=== PATIENT | male | born 1935 | race Caucasian/White ===

== ENCOUNTER 2016-08-18 17:38 | Emergency (ER) | payer OTHER, MEDICARE ==
[~2016-08-18] VITALS: Ht 172.7 cm; Wt 82.0 kg
[2016-08-18 17:37] VITALS: TEMP 36.4; Ht 172.7 cm; Wt 82.0 kg
[~2016-08-18 17:38] MED LIST: ACET-1311 PO; ASPI81TA28 PO; ATEN-175 PO; CIPR-255 PO; CLOP1TAB15 PO; DABI150C PO; EZET10TA41 PO; ISOS30TA3 PO; LISI-461 PO; LORA-741 PO; MULT-878 PO; PRLSR20 PO; QUET1TAB32 PO
--- NOTE | 2016-08-18 18:58 | DIAGNOSTIC IMAGING REPORT ---
CT SCAN OF THE CERVICAL SPINE CLINICAL HISTORY: Fall. COMPARISON STUDY: No priors. TECHNIQUE: CT scan of the cervical spine is performed from the skull base to the upper thoracic spine. Images are reviewed in the axial, sagittal, and coronal planes. IV contrast was not administered for this examination. FINDINGS: Skeletal structures: The skeletal structures are osteopenic. There is no evidence of fracture or subluxation involving the cervical spine. Vertebral body height is maintained. There is 4 mm anterolisthesis at C5-C6. Alignment is otherwise preserved. The odontoid process and lateral masses are intact. The atlantoaxial articulation is preserved noting productive degenerative change with bony sclerosis and narrowing of the interval. There is straightening of the cervical lordosis with mild reversal centered at C5-C6. The spinous processes appear intact. There is moderate multilevel cervical spondylosis, with uncovertebral and facet arthropathy contributing to neural foraminal narrowing at most levels. Intervertebral discs: There is moderate degenerative disc space narrowing at C6-C7. Mild narrowing is seen at C5-C6. The remaining disc spaces appear maintained. Central canal: A posterior disc osteophyte complex at C6-C7 may contribute to mild acquired compromise of the central canal. Soft tissues: The prevertebral and paraspinous soft tissues are within normal limits. There is advanced atherosclerotic calcification of the carotid bulbs. Calvarium: The visualized calvarium at the skull base appears intact. Brain parenchyma: Partially visualized brain parenchyma the skull base is within normal limits noting age-related involutional change. Sinuses and mastoids: The visualized paranasal sinuses are clear. The mastoid air cells are well pneumatized. Lung apices: Emphysematous change is present at the lung apices and there is apical scarring. Imaged apical lung parenchyma is otherwise clear as visualized. IMPRESSION: 1. There is no evidence of fracture or subluxation involving the cervical spine. 2. Osteopenia and spondylotic change as above. 3. Emphysema. Electronically signed by: Hung Johnson M.D. 08/18/2016 6:56 PM
--- NOTE | 2016-08-18 19:00 | DIAGNOSTIC IMAGING REPORT ---
CT SCAN OF THE BRAIN WITHOUT IV CONTRAST CLINICAL HISTORY: Fall with head injury. COMPARISON STUDY: CT of the brain dated 12/15/2015. TECHNIQUE: Unenhanced axial CT scan of the brain is performed from the vertex to the skull base. CT DOSE: 1839.85 mGy.cm FINDINGS: Brain parenchyma: There are age-related involutional changes noting moderate confluent subcortical and periventricular microangiopathic change. There is no hemorrhage, mass effect, or evidence of acute territorial ischemia by CT criteria. Moses-white matter is preserved. No extra-axial fluid collection is seen. Ventricles, sulci, cisterns: Prominent secondary to involutional change. Intracranial vasculature: There is atherosclerotic calcification of the cavernous carotid and vertebral arteries. Calvarium: The skeletal structures are osteopenic. There is no depressed calvarial fracture. Sinuses and mastoids: The visualized paranasal sinuses are clear. The mastoid air cells are well pneumatized. Orbits: The bony orbits are grossly intact. IMPRESSION: Senescent changes as above with no hemorrhage, mass effect, or evidence of acute territorial ischemia by CT criteria. Electronically signed by: Hung Johnson M.D. 08/18/2016 6:59 PM
--- NOTE | 2016-08-18 19:21 | EMERGENCY ROOM VISIT NOTE ---
History Report prepared by Katrin: Gadiel Martins Under the Supervision of: Dr. Luc Rueda M.D. First contact with patient: 17:59 Chief Complaint: FALL Stated Complaint: FALL, LACERATION TO HEAD, HYPERTENSION History of Present Illness The patient is a 80 year old male who presents to the Emergency Room by EMS with complaints of constant head pain s/p fall occurring shortly prior to arrival. He denies any abdominal pain, or neck pain. The patient's fall was unwitnessed. He was reported to have fallen out of his bed. HPI limited secondary to dementia. Patient denies any symptoms. No medications prior to arrival. Source of History: patient History Limited By: dementia Onset: shortly prior to arrival Position: head Timing: constant Associated Symptoms: No abdominal pain, No neck pain Review of Systems ROS limited secondary to dementia. Past Medical & Surgical Medical Problems: (1) Alzheimer's dementia (2) Atrial fibrillation (3) CAD (coronary artery disease) (4) Dyslipidemia (5) HTN (hypertension) (6) Hypertensive urgency (7) Kidney stone Surgical Problems: (1) Stented coronary artery Family History No pertinent family history stated. Social History Smoking Status: Never Smoker Drug Use: none Marital Status: Occupation Status: retired Current/Historical Medications Scheduled Aspirin (Aspirin Ec), 81 MG PO DAILY Atenolol (Tenormin), 100 MG PO DAILY Dabigatran Etexilate Mesylate (Pradaxa), 150 MG PO BID Ezetimibe/Simvastatin (Vytorin 10MG/40MG), 1 TAB PO DAILY Isosorbide Mononitrate Ext Rel (Imdur Ext Rel), 30 MG PO QAM Lisinopril (Zestril), 10 MG PO DAILY Lorazepam (Ativan), 0.5 MG PO DAILY Multivitamins/Minerals (Cerovite Advanced Formula), 1 TAB PO DAILY Omeprazole (Prilosec), 20 MG PO DAILY Quetiapine Fumarate (Seroquel), 50 MG PO BID Venlafaxine Hcl (Effexor), 75 MG PO DAILY Venlafaxine Hcl (Venlafaxine Extended Rel), 37.5 MG PO DAILY Allergies Coded Allergies: No Known Allergies (Unverified , 12/12/15) Physical Exam Vital Signs Date Time Temp Pulse Resp B/P Pulse Ox O2 Delivery O2 Flow Rate FiO2 08/18/16 20:43 77 18 199/95 94 Room Air 08/18/16 19:20 20 197/123 08/18/16 18:17 62 08/18/16 17:37 36.4 66 17 234/116 Room Air Physical Exam GENERAL: Patient is elderly appearing and in no acute distress. Patient is demented. HEENT: Abrasion to the top of the head, normocephalic atraumatic, mucous membranes moist, no nasal congestion, no scleral icterus. NECK: No stridor, no adenopathy, no meningismus, trachea is midline. LUNGS: No dyspnea. Clear to auscultation and equal bilaterally. No wheeze, no rhonchi. HEART: Irregular heart rate. Systolic murmur noted. ABDOMEN: Soft, nontender, bowel sounds positive, no masses appreciated, no peritonitis. BACK: No midline tenderness, no CVA tenderness EXTREMITIES: Normal motion all extremities, no cyanosis, no edema. NEUROLOGIC: Oriented to person only, no acute motor or sensory deficits, no focal weakness, cranial nerves grossly intact. SKIN: No rash, no jaundice, no diaphoresis. Medical Decision & Procedures ER Provider Diagnostic Interpretation: CT results and stated below per my review and radiologist interpretation: CT SCAN OF THE BRAIN WITHOUT IV CONTRAST FINDINGS: Brain parenchyma: There are age-related involutional changes noting moderate confluent subcortical and periventricular microangiopathic change. There is no hemorrhage, mass effect, or evidence of acute territorial ischemia by CT criteria. Moses-white matter is preserved. No extra-axial fluid collection is seen. Ventricles, sulci, cisterns: Prominent secondary to involutional change. Intracranial vasculature: There is atherosclerotic calcification of the cavernous carotid and vertebral arteries. Calvarium: The skeletal structures are osteopenic. There is no depressed calvarial fracture. Sinuses and mastoids: The visualized paranasal sinuses are clear. The mastoid air cells are well pneumatized. Orbits: The bony orbits are grossly intact. IMPRESSION: Senescent changes as above with no hemorrhage, mass effect, or evidence of acute territorial ischemia by CT criteria. Electronically signed by: Hung Johnson M.D. CT SCAN OF THE CERVICAL SPINE FINDINGS: Skeletal structures: The skeletal structures are osteopenic. There is no evidence of fracture or subluxation involving the cervical spine. Vertebral body height is maintained. There is 4 mm anterolisthesis at C5-C6. Alignment is otherwise preserved. The odontoid process and lateral masses are intact. The atlantoaxial articulation is preserved noting productive degenerative change with bony sclerosis and narrowing of the interval. There is straightening of the cervical lordosis with mild reversal centered at C5-C6. The spinous processes appear intact. There is moderate multilevel cervical spondylosis, with uncovertebral and facet arthropathy contributing to neural foraminal narrowing at most levels. Intervertebral discs: There is moderate degenerative disc space narrowing at C6-C7. Mild narrowing is seen at C5-C6. The remaining disc spaces appear maintained. Central canal: A posterior disc osteophyte complex at C6-C7 may contribute to mild acquired compromise of the central canal. Soft tissues: The prevertebral and paraspinous soft tissues are within normal limits. There is advanced atherosclerotic calcification of the carotid bulbs. Calvarium: The visualized calvarium at the skull base appears intact. Brain parenchyma: Partially visualized brain parenchyma the skull base is within normal limits noting age-related involutional change. Sinuses and mastoids: The visualized paranasal sinuses are clear. The mastoid air cells are well pneumatized. Lung apices: Emphysematous change is present at the lung apices and there is apical scarring. Imaged apical lung parenchyma is otherwise clear as visualized. IMPRESSION: 1. There is no evidence of fracture or subluxation involving the cervical spine. 2. Osteopenia and spondylotic change as above. 3. Emphysema. Electronically signed by: Hung Johnson M.D. ECG Indication: other (fall) Rate (beats per minute): 62 Rhythm: atrial fibrillation Findings: PVC, no acute ischemic change ED Course 1800: The patient was evaluated in room C7. A complete history and physical exam was performed. 1914: Reevaluated the patient. His blood pressure has improved. He would like to go home. Discussed results and discharge instructions: the patient verbalized understanding and agreement. He is ready for discharge. Medical Decision Differential: Skull fracture, intracranial hemorrhage, cervical fracture, concussion, amongst other pathologies entertained. 80 yr old male with severe dementia history arrives for evaluation of posterior head injury after fall. He is in no distress and is comfortable. I did place blood pressure cuff on patient which he immediately got quite worked up about. After distracting him for a while and repeating BP while talking to him BP is 170/80. Repeat after CT head is similar and similar to previous blood pressure measurements (note several BP measurements quite high in chart though these were confirmed to be done while patient shaking arms straight out). Does have history of hypertensive urgency though given BP is not severely elevated when he is calm I do not feel that it requires admission at this time. CT head/ cspine negative. No need for wound closure. Impression Primary Impression: Fall Additional Impressions: Head injury, closed, Scalp contusion, Hypertension Scribe Attestation The scribe's documentation has been prepared under my direction and personally reviewed by me in its entirety. I confirm that the note above accurately reflects all work, treatment, procedures, and medical decision making performed by me. Departure Information Dispostion Home / Self-Care Referrals [facility] (PCP) Patient Instructions A Signature Page, ED Head Injury Closed, My [facility]
[2016-08-18] MEDS ORDERED: EFF/375 PO (20:28)
[2016-08-18] MEDS ORDERED: EFF75 PO (20:30)
[2016-08-18] MEDS ORDERED: VENL37.593 PO (20:32)
[2016-08-18 20:43] VITALS: BP 199/95; PULSE 77; O2SAT 94
[2016-09-01] MEDS ORDERED: LSN10 PO (13:39)
[2016-09-01] MEDS ORDERED: VTMD PO (13:42)
== END 2016-08-18 21:00 | disposition home or self-care (01) ==
LOC: EDBD 17:38 → C.EDC 17:40
DX: S00.03XA Contusion of scalp, initial encounter (principal); W06.XXXA Fall from bed, initial encounter; I10 Essential (primary) hypertension; I48.91 Unspecified atrial fibrillation; G30.9 Alzheimer's disease, unspecified; F02.80 Dementia in other diseases classified elsewhere, unspecified severity, without behavioral disturbance, psychotic disturbance, mood disturbance, and anxiety; I25.10 Atherosclerotic heart disease of native coronary artery without angina pectoris; E78.5 Hyperlipidemia, unspecified; Z98.61 Coronary angioplasty status; Z79.01 Long term (current) use of anticoagulants; Z79.82 Long term (current) use of aspirin; Z79.899 Other long term (current) drug therapy

== ENCOUNTER 2016-08-22 13:06 | Emergency (ER) | payer OTHER, MEDICARE ==
[~2016-08-22] VITALS: Ht 170.2 cm; Wt 81.1 kg
[~2016-08-22 13:06] MED LIST changes: -ACET-1311 PO; -CIPR-255 PO; -CLOP1TAB15 PO; +EFF75 PO; +VENL37.593 PO
[2016-08-22 13:15] VITALS: Ht 170.2 cm; Wt 81.1 kg
[2016-08-22] MEDS ORDERED: SIMV40TA2 PO (13:48)
[2016-08-22] MEDS ORDERED: EZET10TA47 PO (13:48)
--- NOTE | 2016-08-22 14:29 | DIAGNOSTIC IMAGING REPORT ---
CT OF THE HEAD WITHOUT CONTRAST CLINICAL HISTORY: Fall. Head injury. COMPARISON STUDY: Head CT August 18, 2016. CT DOSE: 1228.53 mGy.cm TECHNIQUE: Helical axial images of the head were obtained without IV contrast. Automated exposure control was utilized for the study. FINDINGS: No acute intracranial hemorrhage, midline shift or mass effect is present. Ventricular system is stable. The basilar cisterns are patent. There are no extra-axial collections. Moses-white differentiation is maintained. Moderate white matter hypodensity is unchanged. There is no calvarial fracture. IMPRESSION: 1. No acute intracranial findings. 2. No calvarial fracture. Electronically signed by: Beto Keith M.D. 08/22/2016 2:27 PM Dictated Date/Time: 08/22/2016 2:21 PM
[2016-08-22 17:30] VITALS: BP 136/63; PULSE 79; O2SAT 98
--- NOTE | 2016-08-22 22:25 | EMERGENCY ROOM VISIT NOTE ---
History Report prepared by Katrin: Grace Barker Under the Supervision of: Dr. Petey Bone M.D. First contact with patient: 13:13 Chief Complaint: FALL Stated Complaint: FALL History of Present Illness The patient is a 80 year old male who presents to the Emergency Room with complaints of a sudden fall that occurred prior to arrival. Per nursing staff, the patient had a ground level fall today. They note that the patient is from [facility] and hit his head during the fall. Nursing staff notes that the patient was recently evaluated in the emergency department for a fall on . The patient denies any complaints today. Pt denies LOC, headache, visual changes, neck pain, chest pain, breathing difficulties, nausea, vomiting, abdominal pain, back pain, extremity pain, numbness, weakness, open wounds, active bleeding, or other complaints. The history is limited secondary to dementia. Source of History: patient, nursing staff History Limited By: dementia Onset: prior to arrival Position: other (global) Quality: other (fall) Timing: other (sudden) Review of Systems History is limited secondary to dementia. Past Medical & Surgical Medical Problems: (1) AAA (abdominal aortic aneurysm) (2) Alzheimer's dementia (3) Atrial fibrillation (4) CAD (coronary artery disease) (5) Dyslipidemia (6) HTN (hypertension) (7) Hypertensive urgency (8) Kidney stone (9) Myocardial infarction Surgical Problems: (1) Stented coronary artery Family History Unobtainable secondary to dementia Social History Smoking Status: Never Smoker Drug Use: none Marital Status: Occupation Status: retired Current/Historical Medications Scheduled Aspirin (Aspirin Ec), 81 MG PO DAILY Atenolol (Tenormin), 100 MG PO DAILY Dabigatran Etexilate Mesylate (Pradaxa), 150 MG PO BID Ezetimibe (Zetia), 10 MG PO DAILY Isosorbide Mononitrate Ext Rel (Imdur Ext Rel), 30 MG PO QAM Lisinopril (Zestril), 10 MG PO DAILY Lorazepam (Ativan), 0.5 MG PO DAILY Multivitamins/Minerals (Cerovite Advanced Formula), 1 TAB PO DAILY Omeprazole (Prilosec), 20 MG PO DAILY Quetiapine Fumarate (Seroquel), 50 MG PO BID Simvastatin (Zocor), 40 MG PO QAM Venlafaxine Hcl (Effexor), 75 MG PO DAILY Venlafaxine Hcl (Venlafaxine Extended Rel), 37.5 MG PO DAILY Allergies Coded Allergies: No Known Allergies (Unverified , 12/12/15) Physical Exam Vital Signs Date Time Temp Pulse Resp B/P Pulse Ox O2 Delivery O2 Flow Rate FiO2 08/22/16 17:30 79 20 136/63 98 08/22/16 13:15 79 20 136/63 98 Room Air Physical Exam GENERAL: Awake, alert, well appearing, No distress HEAD: Healing abrasion on occiput. Normocephalic. No cosme sign. No raccoon eyes. EYES: Normal conjunctiva. PERRL. EARS: External ears normal. Right TM normal. Left TM normal. NOSE: Atraumatic OROPHARYNX: Lips, tongue, and mucosa unremarkable. No erythema or exudate. NECK: Supple No tracheal deviation or JVD. No posterior midline tenderness. No step offs noted. RESPIRATORY: CTA bilaterally CARDIAC: Regular rate, normal rhythm. ABDOMEN: Inspection reveals no abnormalities. Soft, non distended. No tenderness to palpation. No hernias. BACK: No midline step offs or tenderness to palpation. Unremarkable. PELVIS: Stable to rock. SKIN: Healing skin tear on the right second digit, dorsal aspect. LYMPH: No adenopathy. MUSCULOSKELETAL: Upper and lower extremities are atraumatic. NEURO: GCS 15. Normal sensorium. No sensory or motor deficits noted. Medical Decision & Procedures ER Provider Diagnostic Interpretation: CT: Radiology results as stated below per my review and radiologist interpretation CT OF THE HEAD WITHOUT CONTRAST CLINICAL HISTORY: Fall. Head injury. COMPARISON STUDY: Head CT August 18, 2016. CT DOSE: 1228.53 mGy.cm TECHNIQUE: Helical axial images of the head were obtained without IV contrast. Automated exposure control was utilized for the study. FINDINGS: No acute intracranial hemorrhage, midline shift or mass effect is present. Ventricular system is stable. The basilar cisterns are patent. There are no extra-axial collections. Moses-white differentiation is maintained. Moderate white matter hypodensity is unchanged. There is no calvarial fracture. IMPRESSION: 1. No acute intracranial findings. 2. No calvarial fracture. Electronically signed by: Beto Keith M.D. 08/22/2016 2:27 PM Dictated Date/Time: 08/22/2016 2:21 PM ED Course 1317: The patient was evaluated in room A4B. A complete history and physical exam was performed. 1442: I reevaluated the patient and he is resting comfortably. I discussed the exam findings with the patient and patient's friend and I discussed the treatment plan. They verbalized understanding and agreement. The patient is ready to be transferred back to [facility]. Medical Decision Triage Nursing notes reviewed. The patient's presentation and history were concerning for a fall. Etiologies such as closed head injury, subdural,, concussion ICH, SAH, infection , as well as others were entertained. Clinically the patient was doing well. He had minimal signs of head injury. He was in good spirits. He does have advanced dementia. The power of attorney law clerk was contacted and was comfortable with CT imaging. There is no indication for any other imaging or blood work at this time. The patient underwent CT and this was negative for intracranial pathology. On reassessment the patient was doing well and was in good spirits. Conservative management was discussed and the patient was discharged back to [facility]. By the evaluation outlined above other emergent etiologies such as those listed in the differential, as well as others, were deemed relatively unlikely. The patient and power of attorney law clerk were informed about the findings as listed above. All questions were answered and they were pleased with the treatment. Return instructions were outlined and the patient was discharged in stable condition. The patient was referred to his PCP for follow-up for a recheck of the current condition. The chart was completed utilizing [employer] Speech voice recognition software. Grammatical errors, random word insertions, pronoun errors, and incomplete sentences are an occasional consequence of this system due to software limitations, ambient noise, and hardware issues. Any formal questions or concerns about the content, text, or information contained within the body of this dictation should be directly addressed to the physician for clarification. Impression Primary Impression: Closed head injury Additional Impression: Fall Scribe Attestation The scribe's documentation has been prepared under my direction and personally reviewed by me in its entirety. I confirm that the note above accurately reflects all work, treatment, procedures, and medical decision making performed by me. Departure Information Dispostion Home / Self-Care Referrals [facility] (PCP) Forms HOME CARE DOCUMENTATION FORM, IMPORTANT VISIT INFORMATION Patient Instructions A Signature Page, My [facility] Additional Instructions Diagnosis: 1. Closed head injury 2. Fall CT scan of the head did not reveal any evidence of intracranial injury. Tylenol: Take 1000 mg every 6 hours as needed for pain. Do not take more than 3000 mg in a 24 hour period. Continue current medications. Follow-up with your primary care physician in one to 2 days for a recheck of your current condition. Return to the ER for headache, passing out, difficulty breathing, fevers, numbness, tingling, worsening of your condition, or as needed.
[2016-09-01] MEDS ORDERED: LSN10 PO (13:39)
[2016-09-01] MEDS ORDERED: VTMD PO (13:42)
== END 2016-08-22 17:30 | disposition home or self-care (01) ==
LOC: EDBD 13:06 → C.EDA 13:06
DX: S09.90XA Unspecified injury of head, initial encounter (principal); W19.XXXA Unspecified fall, initial encounter; F02.80 Dementia in other diseases classified elsewhere, unspecified severity, without behavioral disturbance, psychotic disturbance, mood disturbance, and anxiety; I48.91 Unspecified atrial fibrillation; I25.10 Atherosclerotic heart disease of native coronary artery without angina pectoris; I10 Essential (primary) hypertension; E78.5 Hyperlipidemia, unspecified; I25.2 Old myocardial infarction; Z87.440 Personal history of urinary (tract) infections; Z79.82 Long term (current) use of aspirin; Z79.899 Other long term (current) drug therapy; Z98.61 Coronary angioplasty status

== ENCOUNTER 2016-08-26 13:39 | Emergency (ER) | payer OTHER, MEDICARE ==
[~2016-08-26] VITALS: Ht 177.8 cm; Wt 81.9 kg
[~2016-08-26 13:39] MED LIST changes: -EZET10TA41 PO; +EZET10TA47 PO; +SIMV40TA2 PO
[2016-08-26 13:47] VITALS: TEMP 36.7; Ht 177.8 cm; Wt 81.9 kg
--- NOTE | 2016-08-26 14:10 | EMERGENCY ROOM VISIT NOTE ---
History Report prepared by Katrin: Johny Sherwood Under the Supervision of: Dr. Luis Samson M.D. First contact with patient: 13:57 Chief Complaint: ILLNESS Stated Complaint: SYNCOPE History of Present Illness The patient is a 80 year old male who presents to the Emergency Room with complaints of a sudden fall that occurred prior to arrival today. He is a resident at [facility]. He came via EMS. Per the nursing staff, the patient is in the Alzheimer's Unit there and was coming out of lunch, and he started falling down. A chair was put under the patient so he did not fall down to the ground. The staff there thought that the patient may have gone unresponsive, but EMS does not think he did due to good vital signs, so loss of consciousness is denied. The patient denies any pain. He has a history of atrial fibrillation. History limited secondary to patient's Alzheimer's. Source of History: patient History Limited By: other (Alzheimer's) Onset: Prior to arrival today Position: other Associated Symptoms: No LOC Note: Associated symptoms: Patient denies any pain. Review of Systems ROS limited secondary to patient's Alzheimer's. Past Medical & Surgical Medical Problems: (1) AAA (abdominal aortic aneurysm) (2) Alzheimer's dementia (3) Atrial fibrillation (4) CAD (coronary artery disease) (5) Dyslipidemia (6) HTN (hypertension) (7) Hypertensive urgency (8) Kidney stone (9) Myocardial infarction Surgical Problems: (1) Stented coronary artery Family History Unobtainable secondary to dementia Social History Smoking Status: Unknown if Ever Smoked Drug Use: none Marital Status: Occupation Status: retired Current/Historical Medications Scheduled Aspirin (Aspirin Ec), 81 MG PO DAILY Atenolol (Tenormin), 100 MG PO DAILY Dabigatran Etexilate Mesylate (Pradaxa), 150 MG PO BID Ezetimibe (Zetia), 10 MG PO DAILY Isosorbide Mononitrate Ext Rel (Imdur Ext Rel), 30 MG PO QAM Lisinopril (Zestril), 10 MG PO DAILY Lorazepam (Ativan), 0.5 MG PO DAILY Multivitamins/Minerals (Cerovite Advanced Formula), 1 TAB PO DAILY Omeprazole (Prilosec), 20 MG PO DAILY Quetiapine Fumarate (Seroquel), 50 MG PO BID Simvastatin (Zocor), 40 MG PO QAM Venlafaxine Hcl (Effexor), 75 MG PO DAILY Venlafaxine Hcl (Venlafaxine Extended Rel), 75 MG PO DAILY Allergies Coded Allergies: No Known Allergies (Unverified , 08/26/16) Physical Exam Vital Signs Date Time Temp Pulse Resp B/P Pulse Ox O2 Delivery O2 Flow Rate FiO2 08/26/16 16:24 56 18 137/71 94 Room Air 08/26/16 13:55 58 08/26/16 13:47 36.7 59 18 140/75 96 Room Air Physical Exam CONSTITUTIONAL: No acute distress. HEENT: No icterus, moist mucous membranes NECK: No meningismus, trachea is midline. CARDIOVASCULAR: Irregular and slight murmur noted. RESPIRATORY: Unlabored breathing. Clear to auscultation. GASTROINTESTINAL: Non-tender GENITOURINARY: No flank tenderness MUSCULOSKELETAL: Full range of motion NEUROLOGIC: Nonverbal consistent with baseline. PSYCHIATRIC: Normal affect SKIN: Normal for ethnicity. Medical Decision & Procedures ER Provider Diagnostic Interpretation: X-ray results as stated below per my interpretation and radiologist interpretation. Other radiology results as stated below per my review and radiologist interpretation. CT SCAN OF THE BRAIN WITHOUT IV CONTRAST CLINICAL HISTORY: Syncope. Change in mental status. COMPARISON STUDY: CT of the brain dated 08/22/2016. TECHNIQUE: Unenhanced axial CT scan of the brain is performed from the vertex to the skull base. CT DOSE: 823.94 mGycm FINDINGS: Brain parenchyma: There are age-related involutional changes noting moderate subcortical and periventricular microangiopathic change. There is no hemorrhage, mass effect, or evidence of acute territorial ischemia by CT criteria. Moses-white matter is preserved. No extra-axial fluid collection is seen. Ventricles, sulci, cisterns: Prominent secondary to involutional change. Intracranial vasculature: There is atherosclerotic calcification of the cavernous carotid and vertebral arteries. Calvarium: The skeletal structures are osteopenic. There is no depressed calvarial fracture. Sinuses and mastoids: The visualized paranasal sinuses are clear. The mastoid air cells are well pneumatized. Orbits: The bony orbits are grossly intact. IMPRESSION: Senescent changes as above with no hemorrhage, mass effect, or evidence of acute territorial ischemia by CT criteria. Electronically signed by: Hung Johnson M.D. 08/26/2016 2:43 PM Dictated Date/Time: 08/26/2016 2:41 PM CHEST ONE VIEW PORTABLE CLINICAL HISTORY: Near syncope. COMPARISON STUDY: No previous studies for comparison. FINDINGS: Lung volumes are diminished. There is moderate cardiomegaly. There is no evidence of pulmonary edema. There is mild hazy bilateral lower lung opacity. No lobar consolidation is present. IMPRESSION: 1. Diminished lung volumes with mild bibasilar opacities which favor atelectasis. An infectious process could appear similar but is considered less likely. 2. Moderate cardiomegaly without evidence of pulmonary edema. Electronically signed by: Beto Keith M.D. 08/26/2016 2:25 PM Dictated Date/Time: 08/26/2016 2:24 PM Laboratory Results 08/26/16 14:50 Red Blood Count 4.80, Mean Corpuscular Volume 91.7, Mean Corpuscular Hemoglobin 31.5, Mean Corpuscular Hemoglobin Concent 34.3, Mean Platelet Volume 10.5, Neutrophils (%) (Auto) 81.2, Lymphocytes (%) (Auto) 10.4, Monocytes (%) (Auto) 5.2, Eosinophils (%) (Auto) 2.8, Basophils (%) (Auto) 0.2, Neutrophils # (Auto) 7.83, Lymphocytes # (Auto) 1.00, Monocytes # (Auto) 0.50, Eosinophils # (Auto) 0.27, Basophils # (Auto) 0.02 08/26/16 14:50 Test 08/26/16 14:50 08/26/16 19:00 White Blood Count 9.64 K/uL (4.8-10.8) Red Blood Count 4.80 M/uL (4.7-6.1) Hemoglobin 15.1 g/dL (14.0-18.0) Hematocrit 44.0 % (42-52) Mean Corpuscular Volume 91.7 fL (80-100) Mean Corpuscular Hemoglobin 31.5 pg (25-34) Mean Corpuscular Hemoglobin Concent 34.3 g/dl (32-36) Platelet Count 138 K/uL (130-400) Mean Platelet Volume 10.5 fL (7.4-10.4) Neutrophils (%) (Auto) 81.2 % Lymphocytes (%) (Auto) 10.4 % Monocytes (%) (Auto) 5.2 % Eosinophils (%) (Auto) 2.8 % Basophils (%) (Auto) 0.2 % Neutrophils # (Auto) 7.83 K/uL (1.4-6.5) Lymphocytes # (Auto) 1.00 K/uL (1.2-3.4) Monocytes # (Auto) 0.50 K/uL (0.11-0.59) Eosinophils # (Auto) 0.27 K/uL (0-0.5) Basophils # (Auto) 0.02 K/uL (0-0.2) RDW Standard Deviation 45.9 fL (36.4-46.3) RDW Coefficient of Variation 13.8 % (11.5-14.5) Immature Granulocyte % (Auto) 0.2 % Immature Granulocyte # (Auto) 0.02 K/uL (0.00-0.02) Anion Gap 10.0 mmol/L (3-11) Est Creatinine Clear Calc Drug Dose 38.7 ml/min Estimated GFR () 46.8 Estimated GFR (Non- 40.4 BUN/Creatinine Ratio 14.6 (10-20) Calcium Level 8.8 mg/dl (8.5-10.1) Urine Color YELLOW Urine Appearance SL CLOUDY (CLEAR) Urine pH 5.0 (4.5-7.5) Urine Specific [place] >= 1.030 (1.000-1.030) Urine Protein 1+ (NEG) Urine Glucose (UA) NEG (NEG) Urine Ketones NEG (NEG) Urine Occult Blood 1+ (NEG) Urine Nitrite NEG (NEG) Urine Bilirubin NEG (NEG) Urine Urobilinogen NEG (NEG) Urine Leukocyte Esterase NEG (NEG) Labs reviewed by ED physician. ECG Indication: other (fall) Rate (beats per minute): 60 Rhythm: atrial fibrillation Findings: other (nonspecific ST findings, normal axis) ED Course 1359: Past medical records reviewed. The patient was evaluated in room A4B. A complete history and physical examination was performed. 1920: I reevaluated the patient and he is resting comfortably. The patient verbally expressed agreement and understanding of the treatment plan. The patient will be discharged. Medical Decision Differential diagnoses include: Intracranial pathology, UTI, anemia, electrolyte abnormality, orthostasis. 80-year-old presented [facility] from [facility] for evaluation of near-syncope per rub reports through nursing as well as transfer paperwork. It does not appear patient actually experienced a loss of consciousness per medics. Medics also noted when they arrived on the scene patient appeared generally well and had normal vital signs. He was monitored in the emergency department for over 5 hours without dysrhythmia on the monitor other than his baseline atrial fibrillation which remained in normal rate. Vital signs remained within normal limits. CT head, chest x-ray and labs were unremarkable for acute disease. Point care urine demonstrated small blood and ketones per nurse and [id number] troponin was negative. Case discussed with power of patent attorney, daughter. In agreement with plan for discharge at this time. Impression Primary Impression: Near syncope Scribe Attestation The scribe's documentation has been prepared under my direction and personally reviewed by me in its entirety. I confirm that the note above accurately reflects all work, treatment, procedures, and medical decision making performed by me. Departure Information Dispostion Home / Self-Care Referrals [facility] (PCP) Forms HOME CARE DOCUMENTATION FORM, IMPORTANT VISIT INFORMATION, WORK / SCHOOL INSTRUCTIONS Patient Instructions A Signature Page, ED Near Syncope Unkn, My [facility]
[2016-08-26] MEDS ORDERED: MULT-14 PO (14:26)
--- NOTE | 2016-08-26 14:27 | DIAGNOSTIC IMAGING REPORT ---
CHEST ONE VIEW PORTABLE CLINICAL HISTORY: Near syncope. COMPARISON STUDY: No previous studies for comparison. FINDINGS: Lung volumes are diminished. There is moderate cardiomegaly. There is no evidence of pulmonary edema. There is mild hazy bilateral lower lung opacity. No lobar consolidation is present. IMPRESSION: 1. Diminished lung volumes with mild bibasilar opacities which favor atelectasis. An infectious process could appear similar but is considered less likely. 2. Moderate cardiomegaly without evidence of pulmonary edema. Electronically signed by: Beto Keith M.D. 08/26/2016 2:25 PM Dictated Date/Time: 08/26/2016 2:24 PM
--- NOTE | 2016-08-26 14:45 | DIAGNOSTIC IMAGING REPORT ---
CT SCAN OF THE BRAIN WITHOUT IV CONTRAST CLINICAL HISTORY: Syncope. Change in mental status. COMPARISON STUDY: CT of the brain dated 08/22/2016. TECHNIQUE: Unenhanced axial CT scan of the brain is performed from the vertex to the skull base. CT DOSE: 823.94 mGycm FINDINGS: Brain parenchyma: There are age-related involutional changes noting moderate subcortical and periventricular microangiopathic change. There is no hemorrhage, mass effect, or evidence of acute territorial ischemia by CT criteria. Moses-white matter is preserved. No extra-axial fluid collection is seen. Ventricles, sulci, cisterns: Prominent secondary to involutional change. Intracranial vasculature: There is atherosclerotic calcification of the cavernous carotid and vertebral arteries. Calvarium: The skeletal structures are osteopenic. There is no depressed calvarial fracture. Sinuses and mastoids: The visualized paranasal sinuses are clear. The mastoid air cells are well pneumatized. Orbits: The bony orbits are grossly intact. IMPRESSION: Senescent changes as above with no hemorrhage, mass effect, or evidence of acute territorial ischemia by CT criteria. Electronically signed by: Hung Johnson M.D. 08/26/2016 2:43 PM Dictated Date/Time: 08/26/2016 2:41 PM
[2016-08-26 15:03] LABS: BASO % 0.2 %; BASO ABS # 0.02 K/uL (0-0.2); COMPLETE YES; EOS % 2.8 %; IG% 0.2 %; LYMPH % 10.4 %; MEAN CELL VOLUME 91.7 fL (80-100); MEAN CORPUSCULAR HEMOGLOBIN 31.5 pg (25-34); MEAN CORPUSCULAR HGB CONC 34.3 g/dl (32-36); MEAN PLATELET VOLUME 10.5 fL (7.4-10.4); MONO % 5.2 %; NEUT % 81.2 %; PLATELET COUNT 138 K/uL (130-400); WHITE BLOOD COUNT 9.64 K/uL (4.8-10.8)
[2016-08-26 15:26] LABS: BUN/CREATININE RATIO 14.6 (10-20); CALCIUM 8.8 mg/dl (8.5-10.1); CREATININE 1.6 mg/dl (0.60-1.40); POTASSIUM 4.2 mmol/L (3.5-5.1)
[2016-08-26 19:20] LABS: MANUAL MICROSCOPIC REQUIRED? YES; URINE APPEARANCE SL CLOUDY (CLEAR); URINE BILIRUBIN NEG (NEG); URINE COLOR YELLOW; URINE NITRITE NEG (NEG); URINE SPECIFIC GRAVITY >= 1.030 (1.000-1.030); UROBILINOGEN NEG (NEG)
[2016-08-26 19:21] LABS: REVIEW REQ? NO
[2016-08-26 19:27] LABS: URINE BACTERIA 1+ (NEG)
[2016-08-26 19:30] LABS: ZZURINE CULT IF INDIC CATH YES
[2016-08-26 20:33] VITALS: BP 166/90; PULSE 63; O2SAT 95
[2016-09-01] MEDS ORDERED: LSN10 PO (13:39)
[2016-09-01] MEDS ORDERED: VTMD PO (13:42)
== END 2016-08-26 20:30 | disposition home or self-care (01) ==
LOC: EDBD 13:39 → C.EDA 13:40
DX: R55 Syncope and collapse (principal); G30.9 Alzheimer's disease, unspecified; I48.91 Unspecified atrial fibrillation; I25.10 Atherosclerotic heart disease of native coronary artery without angina pectoris; I10 Essential (primary) hypertension; E78.5 Hyperlipidemia, unspecified; Z87.442 Personal history of urinary calculi; I71.9 Aortic aneurysm of unspecified site, without rupture; Z79.82 Long term (current) use of aspirin; Z79.899 Other long term (current) drug therapy

== ENCOUNTER → 2016-09-09 | Outpatient (CLI) | payer OTHER, MEDICARE ==
[~2016-09-09] MED LIST changes: -ATEN-175 PO; -DABI150C PO; -LISI-461 PO; +LSN10 PO; +NUTR-706 PO; +OSEL30CA PO; +SIMV20TA2 PO; +VTMD PO
[2016-09-09 10:08] LABS: BLOOD UREA NITROGEN 20 mg/dl (7-18); BUN/CREATININE RATIO 18.1 (10-20); CALCIUM 8.9 mg/dl (8.5-10.1); CARBON DIOXIDE 25 mmol/L (21-32); CHLORIDE 106 mmol/L (98-107); GLUCOSE 76 mg/dl (70-99); POTASSIUM 4.3 mmol/L (3.5-5.1); SODIUM 141 mmol/L (136-145)
--- NOTE | 2016-09-12 08:48 | CODING QUERY NO DIAGNOSIS ---
TREATMENT RENDERED WITHOUT A DIAGNOSIS To promote full compliance with coding requirements relating to patient care, physician participation is requested in all cases of health screener uncertainty. Please assist us with providing a diagnosis/symptom for the test(s) below: A diagnosis/symptom was not documented on your Order. A valid diagnosis/symptom is required to bill all insurances. Please remember that we are unable to code a diagnosis of rule out, probable, possible, questionable, or suspected. Tests that require a diagnosis: DOS 09/09 * PRP DIAGNOSIS: Provider Signature: Date: Thank you Nicole Pritchard Health Information Management Once completed, please kindly fax back to [phone] For questions please call [phone]
== END | disposition home or self-care (01) ==
LOC: C.LABOUTLO 09:27
PROVIDERS: ATTEND Internal Medicine
DX: N28.9 Disorder of kidney and ureter, unspecified (principal)

== ENCOUNTER 2016-09-15 22:00 | Emergency (ER) | payer OTHER, MEDICARE ==
[~2016-09-15] VITALS: Ht 170.2 cm; Wt 77.0 kg
[~2016-09-15 22:00] MED LIST changes: -NUTR-706 PO; -OSEL30CA PO; -SIMV20TA2 PO
[2016-09-15 22:15] VITALS: Ht 170.2 cm; Wt 77.0 kg
[2016-09-15] MEDS ORDERED: OSEL30CA PO (23:17)
[2016-09-16 00:32] VITALS: BP 147/71; PULSE 87; TEMP 36.5; O2SAT 94
--- NOTE | 2016-09-16 02:53 | EMERGENCY ROOM VISIT NOTE ---
History Report prepared by Jamieibheena: Joaquin Yancey Under the Supervision of: Dr. Petey Bone M.D. First contact with patient: 22:30 Chief Complaint: FALL Stated Complaint: R FLANK PAIN History of Present Illness The patient is an 81 year old male who presents to the Emergency Room after a fall that occurred at his assisted living facility earlier today. Per EMS, the patient had an unwitnessed fall that occurred between 4 and 7 AM this morning. The nursing staff assumed the patient fell after seeing how his furniture was disorganized. This morning, the patient complained of right flank pain. The patient was eventually sent to the ER because it is policy. Upon arriving at the ED, the patient does not remember the fall and does not complain of any pain. Per assisted living, the patient is not ambulatory. Pt denies LOC, headache, visual changes, neck pain, chest pain, breathing difficulties, nausea , vomiting, abdominal pain, back pain, extremity pain, numbness, weakness, open wounds, active bleeding, or other complaints.The patient's HPI is limited due to dementia. Source of History: patient, EMS, nursing staff Onset: this morning Position: other (global) Note: Denies: any medical complaints at this time. Review of Systems The patient's ROS is limited due to dementia. Past Medical & Surgical Medical Problems: (1) AAA (abdominal aortic aneurysm) (2) Alzheimer's dementia (3) Atrial fibrillation (4) CAD (coronary artery disease) (5) Dyslipidemia (6) GI bleed (7) HTN (hypertension) (8) Hypertensive urgency (9) Kidney stone (10) Lightheadedness (11) Myocardial infarction (12) Syncope Surgical Problems: (1) Stented coronary artery Family History Unobtainable secondary to dementia Social History Smoking Status: Never Smoker Drug Use: none Marital Status: Occupation Status: retired Current/Historical Medications Scheduled Aspirin (Aspirin Ec), 81 MG PO DAILY Ergocalciferol (Vitamin D), 50,000 UNITS PO Q7D Ezetimibe (Zetia), 10 MG PO DAILY Isosorbide Mononitrate Ext Rel (Imdur Ext Rel), 30 MG PO QAM Lisinopril (Zestril), 10 MG PO QAM Lorazepam (Ativan), 0.5 MG PO DAILY Multivitamins/Minerals (Cerovite Advanced Formula), 1 TAB PO DAILY Omeprazole (Prilosec), 20 MG PO DAILY Oseltamivir Phosphate (Tamiflu), 1 CAP PO DAILY Quetiapine Fumarate (Seroquel), 50 MG PO BID Simvastatin (Zocor), 40 MG PO QAM Venlafaxine Hcl (Effexor), 75 MG PO DAILY Venlafaxine Hcl (Venlafaxine Extended Rel), 37.5 MG PO DAILY Allergies Coded Allergies: No Known Allergies (Unverified , 09/15/16) Physical Exam Vital Signs Date Time Temp Pulse Resp B/P Pulse Ox O2 Delivery O2 Flow Rate FiO2 09/16/16 00:32 36.5 87 18 147/71 94 09/15/16 22:15 36.5 89 17 151/86 98 Room Air 09/15/16 22:13 88 Physical Exam GENERAL: Awake, alert, well appearing, no acute distress. Demented sensorium. HEAD: Normocephalic, atraumatic. No cosme sign. No raccoon eyes. EYES: Normal conjunctiva. PERRL. EARS: External ears normal. Right TM normal. Left TM normal. NOSE: Atraumatic OROPHARYNX: Lips, tongue, and mucosa unremarkable. No erythema or exudate. NECK: Supple. No nuchal rigidity. FROM. No tracheal deviation or JVD. No posterior midline tenderness. No step offs noted. RESPIRATORY: CTA bilaterally CARDIAC: Regular rate, normal rhythm. ABDOMEN: Inspection reveals no abnormalities. Soft, non distended. No tenderness to palpation. No hernias. BACK: No midline step offs or tenderness to palpation. Unremarkable. PELVIS: Stable to rock. SKIN: Normal. LYMPH: No adenopathy. MUSCULOSKELETAL: Upper and lower extremities are atraumatic. Trace lower extremity edema. NEURO: GCS 15. Normal sensorium. No sensory or motor deficits noted. Medical Decision & Procedures ED Course 2259: The patient was evaluated in room B12. A complete history and physical exam was performed. 2317: I reevaluated the patient and he was resting comfortably. Discussed results and discharge instructions: The patient is ready for discharge and waiting for transport. Medical Decision Triage Nursing notes reviewed. The patient's presentation and history were concerning for Evaluation for possible injury from a possible fall. Etiologies such as soft tissue injury, fracture, dislocation, intracranial injury, as well as others were entertained. Patient was evaluated. Clinically he looked well. He had dementia however had no complaints of any pain. A physical examination was performed. No traumatic findings were found. The patient was doing well. I discussed conservative management. Imaging was felt to be unnecessary given the lack of physical findings and lack of complaints of any pain or injury. The chart was completed utilizing [employer] Speech voice recognition software. Grammatical errors, random word insertions, pronoun errors, and incomplete sentences are an occasional consequence of this system due to software limitations, ambient noise, and hardware issues. Any formal questions or concerns about the content, text, or information contained within the body of this dictation should be directly addressed to the physician for clarification. Impression Primary Impression: evaluation for fall Scribe Attestation The scribe's documentation has been prepared under my direction and personally reviewed by me in its entirety. I confirm that the note above accurately reflects all work, treatment, procedures, and medical decision making performed by me. Departure Information Dispostion Home / Self-Care Referrals [facility] (PCP) Forms HOME CARE DOCUMENTATION FORM, IMPORTANT VISIT INFORMATION Patient Instructions My [facility] Additional Instructions No significant trauma injuries were found. Tylenol: Take 1000 mg every 6 hours as needed for pain. Do not take more than 3000 mg in a 24 hour period. Continue current medications. Rest injury plenty of fluids. Return to the ER for headache, passing out, difficulty breathing, fevers, abdominal pain, chest pain, worsening of your condition, or as needed.
== END 2016-09-16 00:32 | disposition home or self-care (01) ==
LOC: EDBD 22:00 → C.EDB 22:01
DX: Z04.8 Encounter for examination and observation for other specified reasons (principal); G30.9 Alzheimer's disease, unspecified; F02.80 Dementia in other diseases classified elsewhere, unspecified severity, without behavioral disturbance, psychotic disturbance, mood disturbance, and anxiety; I10 Essential (primary) hypertension; I25.2 Old myocardial infarction; E78.5 Hyperlipidemia, unspecified; I25.10 Atherosclerotic heart disease of native coronary artery without angina pectoris; I71.9 Aortic aneurysm of unspecified site, without rupture; Z79.82 Long term (current) use of aspirin; Z79.899 Other long term (current) drug therapy

== ENCOUNTER → 2016-09-16 | Outpatient (CLI) | payer OTHER, MEDICARE ==
[~2016-09-16] MED LIST changes: +NUTR-706 PO; +OSEL30CA PO; +SIMV20TA2 PO
[2016-09-16 08:47] LABS: BLOOD UREA NITROGEN 28 mg/dl (7-18); BUN/CREATININE RATIO 21.7 (10-20); CARBON DIOXIDE 23 mmol/L (21-32); CHLORIDE 104 mmol/L (98-107); GLUCOSE 101 mg/dl (70-99); PHOSPHORUS 3.2 mg/dl (2.5-4.9); POTASSIUM 3.9 mmol/L (3.5-5.1); SODIUM 138 mmol/L (136-145)
--- NOTE | 2016-09-18 13:49 | CODING QUERY NO DIAGNOSIS ---
TREATMENT RENDERED WITHOUT A DIAGNOSIS 36 To promote full compliance with coding requirements relating to patient care, physician participation is requested in all cases of tobacco prizer uncertainty. Please assist us with providing a diagnosis/symptom for the test(s) below: A diagnosis/symptom was not documented on your Order. A valid diagnosis/symptom is required to bill all insurances. Please remember that we are unable to code a diagnosis of rule out, probable, possible, questionable, or suspected. DOS 09/16/16 Tests that require a diagnosis: * RENAL PROFILE DIAGNOSIS: Provider Signature: Date: Thank you Mary Beth Mcadams [employer] Information Management Once completed, please kindly fax back to [phone] For questions please call [phone]
== END | disposition home or self-care (01) ==
LOC: C.LABOUTLO 08:17
PROVIDERS: ATTEND Internal Medicine
DX: N18.9 Chronic kidney disease, unspecified (principal)

== ENCOUNTER 2016-11-23 13:15 | Emergency (ER) | payer OTHER, MEDICARE ==
[~2016-11-23] VITALS: Ht 172.7 cm; Wt 72.5 kg
[~2016-11-23 13:15] MED LIST changes: -NUTR-706 PO; -SIMV20TA2 PO
[2016-11-23 13:35] VITALS: Ht 172.7 cm; Wt 72.5 kg
[2016-11-23] MEDS ORDERED: SIMV20TA2 PO (13:41)
--- NOTE | 2016-11-23 14:57 | DIAGNOSTIC IMAGING REPORT ---
CHEST ONE VIEW PORTABLE CLINICAL HISTORY: Chest trauma PAIN COMPARISON STUDY: 08/29/2016 FINDINGS: The heart is enlarged. There is no focal pulmonary consolidation. There is no overt failure. There are no pleural effusions. There is a right upper lung zone opacity which will nonspecific likely relates to the right first costochondral junction. No pneumothorax is visualized.[ IMPRESSION: 1. Mild cardiomegaly 2. No evidence of pneumothorax 3. Right apical opacity, likely related to the right first costochondral junction Electronically signed by: Jesus Pérez M.D. 11/23/2016 2:55 PM Dictated Date/Time: 11/23/2016 2:52 PM
--- NOTE | 2016-11-23 14:58 | DIAGNOSTIC IMAGING REPORT ---
RIGHT HAND MIN 3 VIEWS ROUTINE CLINICAL HISTORY: Head pain status post trauma COMPARISON: None. DISCUSSION: The bones are osteopenic. There are mild degenerative changes present. No acute fractures are visualized. IMPRESSION: Osteopenia. No acute fractures or dislocations identified. Electronically signed by: Jesus Pérez M.D. 11/23/2016 2:56 PM Dictated Date/Time: 11/23/2016 2:55 PM
[2016-11-23 15:19] LABS: BASO % 0.3 %; BASO ABS # 0.02 K/uL (0-0.2); COMPLETE YES; EOS % 2.2 %; HEMATOCRIT 45.4 % (42-52); IG% 0.1 %; LYMPH % 18.6 %; LYMPH ABS # 1.28 K/uL (1.2-3.4); MEAN CELL VOLUME 89.2 fL (80-100); MEAN CORPUSCULAR HEMOGLOBIN 30.8 pg (25-34); MEAN CORPUSCULAR HGB CONC 34.6 g/dl (32-36); MEAN PLATELET VOLUME 10.7 fL (7.4-10.4); MONO % 5.4 %; NEUT % 73.4 %; PLATELET COUNT 147 K/uL (130-400); RED BLOOD COUNT 5.09 M/uL (4.7-6.1); WHITE BLOOD COUNT 6.88 K/uL (4.8-10.8)
[2016-11-23 15:29] LABS: INR 1.1 (0.9-1.1); PARTIAL THROMBOPLASTIN RATIO 1.1; PROTHROMBIN TIME (PATIENT) 11.3 SECONDS (9.0-12.0)
[2016-11-23 15:41] LABS: BLOOD UREA NITROGEN 15 mg/dl (7-18); BUN/CREATININE RATIO 12.2 (10-20); CALCIUM 8.8 mg/dl (8.5-10.1); CARBON DIOXIDE 28 mmol/L (21-32); CHLORIDE 105 mmol/L (98-107); GLUCOSE 89 mg/dl (70-99); POTASSIUM 4.1 mmol/L (3.5-5.1); SODIUM 140 mmol/L (136-145)
--- NOTE | 2016-11-23 15:51 | DIAGNOSTIC IMAGING REPORT ---
CT HEAD WITHOUT CONTRAST (CT) CLINICAL HISTORY: Head trauma. Acute change in mental status. COMPARISON STUDY: 08/26/2016 TECHNIQUE: Axial CT of the brain is performed from the vertex to the skull base. IV contrast was not administered for this examination. CT DOSE: 1235.79 mGy.cm FINDINGS: No intra or extra-axial mass lesions are visualized. There is no CT evidence of acute cortical infarction. There is no evidence of midline shift. There is no acute hemorrhage. No calvarial fractures are visualized. There are patchy white matter hypodensities likely on a small vessel basis. There is mild ventricular dilatation, likely secondary to volume loss. There is no evidence of acute sinusitis. There is a small left frontal scalp hematoma. IMPRESSION: Small left frontal scalp hematoma. No acute intracranial findings. Electronically signed by: Jesus Pérez M.D. 11/23/2016 3:49 PM Dictated Date/Time: 11/23/2016 3:48 PM
--- NOTE | 2016-11-23 15:54 | DIAGNOSTIC IMAGING REPORT ---
CT OF THE CERVICAL SPINE CLINICAL HISTORY: Neck pain status post trauma COMPARISON STUDY: August 18, 2016 CT DOSE: TECHNIQUE: CT scan of the cervical spine was performed from the skull base to the thoracic inlet. Images are reviewed in the axial, sagittal, and coronal planes. IV contrast was not administered for this examination. FINDINGS: The visualized portions of the lung apices reveal no evidence of pneumothorax. There is pulmonary emphysema. The prevertebral soft tissues are normal. No fractures or traumatic subluxations are visualized. There are multilevel degenerative changes. Mild anterior subluxation of C5 on C6 is felt to be degenerative. This remain similar to the preceding study. IMPRESSION: No evidence of acute fracture or traumatic subluxation. Electronically signed by: Jesus Pérez M.D. 11/23/2016 3:52 PM Dictated Date/Time: 11/23/2016 3:49 PM
[2016-11-23 16:39] VITALS: TEMP 36.6
[2016-11-23 18:35] VITALS: BP 159/95; PULSE 74; O2SAT 98
--- NOTE | 2016-11-23 19:05 | EMERGENCY ROOM VISIT NOTE ---
History Report prepared by Katrin: Dali Santos Under the Supervision of: Dr. Umang Chavarria M.D. First contact with patient: 14:22 Chief Complaint: FALL Stated Complaint: Fall from standing, Head abrasion History of Present Illness The patient is an 81 year old male who presents to the Emergency Room with complaints of a fall that occurred earlier today. Nursing staff reports he had an unwitnessed fall at his shelter and sustained an abrasion to the top of his head. The patient denies any headache, chest pain, shortness of breath, abdominal pain or pain or swelling in his arms or legs. He states he feels "pretty good" here in the ED. Additional history of unobtainable secondary to dementia. Source of History: patient, nursing staff History Limited By: dementia Onset: INSURANCE ACCOUNT MANAGER Position: other (global) Quality: other (fall) Timing: resolved Associated Symptoms: No SOB, No abdominal pain, No chest pain, No headache Review of Systems See HPI for pertinent positives & negatives. A total of 10 systems reviewed and were otherwise negative. Past Medical & Surgical Medical Problems: (1) AAA (abdominal aortic aneurysm) (2) Alzheimer's dementia (3) Atrial fibrillation (4) CAD (coronary artery disease) (5) Dyslipidemia (6) GI bleed (7) HTN (hypertension) (8) Hypertensive urgency (9) Kidney stone (10) Lightheadedness (11) Myocardial infarction (12) Syncope Surgical Problems: (1) Stented coronary artery Family History Unobtainable secondary to dementia Social History Smoking Status: Unknown if Ever Smoked Alcohol Use: none Drug Use: none Marital Status: Housing Status: lives with family Occupation Status: retired Current/Historical Medications Scheduled Aspirin (Aspirin Ec), 81 MG PO DAILY Ergocalciferol (Vitamin D), 50,000 UNITS PO Q7D Isosorbide Mononitrate Ext Rel (Imdur Ext Rel), 30 MG PO QAM Lisinopril (Zestril), 10 MG PO QAM Lorazepam (Ativan), 0.5 MG PO DAILY Multivitamins/Minerals (Cerovite Advanced Formula), 1 TAB PO DAILY Omeprazole (Prilosec), 20 MG PO DAILY Quetiapine Fumarate (Seroquel), 50 MG PO BID Simvastatin (Zocor), 20 MG PO DAILY Venlafaxine Hcl (Effexor), 75 MG PO DAILY Venlafaxine Hcl (Venlafaxine Extended Rel), 37.5 MG PO DAILY Allergies Coded Allergies: No Known Allergies (Unverified , 11/23/16) Physical Exam Vital Signs Date Time Temp Pulse Resp B/P Pulse Ox O2 Delivery O2 Flow Rate FiO2 11/23/16 18:35 74 20 159/95 98 Room Air 11/23/16 16:39 36.6 69 20 148/91 98 11/23/16 16:33 36.6 69 20 148/91 98 Room Air 11/23/16 13:35 36.6 69 20 154/95 98 Room Air Physical Exam Constitutional: Vital signs reviewed. Pleasant elderly male. GCS15 Eyes: Pupils are equal round reactive to light. Conjunctiva are noninjected. ENT: Pharynx is clear without erythema or exudate. Mucous membranes are moist. Neck supple without meningeal signs. No midline tenderness to the cervical spine. Soft tissue swelling and abrasion to the left forehead. Respiratory: Clear to auscultation bilaterally. Breath sounds are equal bilaterally. Cardiovascular: Irregularly irregular rhythm, regular rate. No rubs or gallops. GI: Soft, nondistended and nontender. Bowel sounds are present. No pulsatile masses. Musculoskeletal: No peripheral edema. No tenderness to the hips or upper extremities or lower extremities other than dorsum of right hand, where he has a small bruise and skin tear. Integumentary: No cyanosis. Neurological: The patient is awake and alert. Cranial nerves II-XII are intact. Motor is 5 out of 5 all extremities. Sensation is intact to light touch all extremities. Normal speech. Psychiatric: Normal affect. Medical Decision & Procedures ER Provider Diagnostic Interpretation: These X-Rays were reviewed and interpreted by myself and the radiologist. CHEST ONE VIEW PORTABLE CLINICAL HISTORY: Chest trauma PAIN COMPARISON STUDY: 08/29/2016 FINDINGS: The heart is enlarged. There is no focal pulmonary consolidation. There is no overt failure. There are no pleural effusions. There is a right upper lung zone opacity which will nonspecific likely relates to the right first costochondral junction. No pneumothorax is visualized.[ IMPRESSION: 1. Mild cardiomegaly 2. No evidence of pneumothorax 3. Right apical opacity, likely related to the right first costochondral junction Electronically signed by: Jesus Pérez M.D. 11/23/2016 2:55 PM RIGHT HAND MIN 3 VIEWS ROUTINE CLINICAL HISTORY: Head pain status post trauma COMPARISON: None. DISCUSSION: The bones are osteopenic. There are mild degenerative changes present. No acute fractures are visualized. IMPRESSION: Osteopenia. No acute fractures or dislocations identified. Electronically signed by: Jesus Pérez M.D. 11/23/2016 2:[address] scans were reviewed and interpreted by the radiologist and reviewed by myself. CT OF THE CERVICAL SPINE CLINICAL HISTORY: Neck pain status post trauma COMPARISON STUDY: August 18, 2016 CT DOSE: TECHNIQUE: CT scan of the cervical spine was performed from the skull base to the thoracic inlet. Images are reviewed in the axial, sagittal, and coronal planes. IV contrast was not administered for this examination. FINDINGS: The visualized portions of the lung apices reveal no evidence of pneumothorax. There is pulmonary emphysema. The prevertebral soft tissues are normal. No fractures or traumatic subluxations are visualized. There are multilevel degenerative changes. Mild anterior subluxation of C5 on C6 is felt to be degenerative. This remain similar to the preceding study. IMPRESSION: No evidence of acute fracture or traumatic subluxation. Electronically signed by: Jesus Pérez M.D. 11/23/2016 3:[address] HEAD WITHOUT CONTRAST (CT) CLINICAL HISTORY: Head trauma. Acute change in mental status. COMPARISON STUDY: 08/26/2016 TECHNIQUE: Axial CT of the brain is performed from the vertex to the skull base. IV contrast was not administered for this examination. CT DOSE: 1235.79 mGy.cm FINDINGS: No intra or extra-axial mass lesions are visualized. There is no CT evidence of acute cortical infarction. There is no evidence of midline shift. There is no acute hemorrhage. No calvarial fractures are visualized. There are patchy white matter hypodensities likely on a small vessel basis. There is mild ventricular dilatation, likely secondary to volume loss. There is no evidence of acute sinusitis. There is a small left frontal scalp hematoma. IMPRESSION: Small left frontal scalp hematoma. No acute intracranial findings. Electronically signed by: Jesus Pérez M.D. 11/23/2016 3:49 PM Laboratory Results 11/23/16 15:10 Red Blood Count 5.09, Mean Corpuscular Volume 89.2, Mean Corpuscular Hemoglobin 30.8, Mean Corpuscular Hemoglobin Concent 34.6, Mean Platelet Volume 10.7, Neutrophils (%) (Auto) 73.4, Lymphocytes (%) (Auto) 18.6, Monocytes (%) (Auto) 5.4, Eosinophils (%) (Auto) 2.2, Basophils (%) (Auto) 0.3, Neutrophils # (Auto) 5.05, Lymphocytes # (Auto) 1.28, Monocytes # (Auto) 0.37, Eosinophils # (Auto) 0.15, Basophils # (Auto) 0.02 11/23/16 15:10 Test 11/23/16 15:10 White Blood Count 6.88 K/uL (4.8-10.8) Red Blood Count 5.09 M/uL (4.7-6.1) Hemoglobin 15.7 g/dL (14.0-18.0) Hematocrit 45.4 % (42-52) Mean Corpuscular Volume 89.2 fL (80-100) Mean Corpuscular Hemoglobin 30.8 pg (25-34) Mean Corpuscular Hemoglobin Concent 34.6 g/dl (32-36) Platelet Count 147 K/uL (130-400) Mean Platelet Volume 10.7 fL (7.4-10.4) Neutrophils (%) (Auto) 73.4 % Lymphocytes (%) (Auto) 18.6 % Monocytes (%) (Auto) 5.4 % Eosinophils (%) (Auto) 2.2 % Basophils (%) (Auto) 0.3 % Neutrophils # (Auto) 5.05 K/uL (1.4-6.5) Lymphocytes # (Auto) 1.28 K/uL (1.2-3.4) Monocytes # (Auto) 0.37 K/uL (0.11-0.59) Eosinophils # (Auto) 0.15 K/uL (0-0.5) Basophils # (Auto) 0.02 K/uL (0-0.2) RDW Standard Deviation 43.6 fL (36.4-46.3) RDW Coefficient of Variation 13.3 % (11.5-14.5) Immature Granulocyte % (Auto) 0.1 % Immature Granulocyte # (Auto) 0.01 K/uL (0.00-0.02) Prothrombin Time 11.3 SECONDS (9.0-12.0) Prothromb Time International Ratio 1.1 (0.9-1.1) Activated Partial Thromboplast Time 29.6 SECONDS (21.0-31.0) Partial Thromboplastin Ratio 1.1 Anion Gap 7.0 mmol/L (3-11) Est Creatinine Clear Calc Drug Dose 47.5 ml/min Estimated GFR () 65.8 Estimated GFR (Non- 56.8 BUN/Creatinine Ratio 12.2 (10-20) Calcium Level 8.8 mg/dl (8.5-10.1) Troponin I < 0.015 ng/ml (0-0.045) Chemistry Specimen Hemolysis Laboratory results as reviewed by me. ECG Indication: other (fall) Rate (beats per minute): 97 Rhythm: atrial fibrillation Findings: other (No widening of QRS. No ST elevations. Limited interpretation due to artifact.) ED Course 1445: The patient was evaluated in room A10. A complete history and physical exam was performed. 1600: I reevaluated the patient. I talked to him about his test results. He has no complaints at this time. Medical Decision This is an 81-year-old male who presents with head injury after a unwitnessed fall. Differential diagnosis includes contusion, concussion, intracranial hemorrhage, skull fracture, cervical fracture, metabolic derangement. I did perform a limited focused review of portions of the patient's old chart on the electronic medical record. The patient was admitted in August 2016 for altered mental status. He has a history of GI bleed and atrial fibrillation and was previously on Pradaxa. He did have an unwitnessed fall on September 15 and he was discharged after evaluation. I did evaluate the patient as noted above. I did obtain history from the nurse as well as the patient. He does have a history of dementia and does not remember falling. He denies any pain or any complaints at this time. GCS is 15. IV access was established. The patient was placed on a continuous cardiac rn. I did order and personally review the patient's 12-lead EKG and chest x-ray as described above. I did order and review the patient's blood work as noted in the electronic medical record. His lab work is unremarkable. I did order a CT of the head and cervical spine. I did review the images myself as well as the radiology report as described above. There is no evidence of intracranial hemorrhage or cervical fracture. I did reassess the patient. He has no complaints. He was discharged back to the shelter. Impression Primary Impression: Acute head injury Additional Impressions: Fall Dementia Injury of right hand Scribe Attestation The scribe's documentation has been prepared under my direct and personally reviewed by me in its entirety. I confirm that the note above accurately reflects all work, treatment, procedures, and medical decision making performed by me. Departure Information Dispostion Home / Self-Care Referrals [facility] (PCP) Patient Instructions ED Head Injury Closed, My [facility] Additional Instructions You have been examined and treated today on an emergency basis only. This is not a substitute for, or an effort to provide, complete comprehensive medical care. It is impossible to recognize and treat all injuries or illnesses in a single emergency department visit. It is therefore important that you follow up closely with your physician. Call as soon as possible for an appointment. Return for worsening symptoms or if you develop fever, vomiting, headache, chest pain, shortness of breath or any other concerning symptoms. Problem Qualifiers Primary Impression: Acute head injury Encounter type: initial encounter Qualified Codes: S09.90XA - Unspecified injury of head, initial encounter Additional Impressions: Fall Encounter type: initial encounter Qualified Codes: W19.XXXA - Unspecified fall, initial encounter Dementia Dementia type: Alzheimer's disease Alzheimer's disease onset: unspecified onset Dementia behavioral disturbance: without behavioral disturbance Qualified Codes: G30.9 - Alzheimer's disease, unspecified; F02.80 - Dementia in other diseases classified elsewhere without behavioral disturbance Injury of right hand Encounter type: initial encounter Qualified Codes: S69.91XA - Unspecified injury of right wrist, hand and finger(s), initial encounter
== END 2016-11-23 19:15 | disposition home or self-care (01) ==
LOC: EDBD 13:15 → C.EDA 13:18
DX: S09.90XA Unspecified injury of head, initial encounter (principal); S69.91XA Unspecified injury of right wrist, hand and finger(s), initial encounter; W19.XXXA Unspecified fall, initial encounter; Y92.129 Unspecified place in nursing home as the place of occurrence of the external cause; I10 Essential (primary) hypertension; I48.91 Unspecified atrial fibrillation; E78.5 Hyperlipidemia, unspecified; I25.2 Old myocardial infarction; I25.10 Atherosclerotic heart disease of native coronary artery without angina pectoris; G30.9 Alzheimer's disease, unspecified; F02.80 Dementia in other diseases classified elsewhere, unspecified severity, without behavioral disturbance, psychotic disturbance, mood disturbance, and anxiety; Z98.61 Coronary angioplasty status; Z79.82 Long term (current) use of aspirin; Z79.899 Other long term (current) drug therapy

== ENCOUNTER 2016-12-28 10:43 | Emergency (ER) | payer OTHER, MEDICARE ==
[~2016-12-28] VITALS: Ht 175.3 cm; Wt 71.5 kg
[~2016-12-28 10:43] MED LIST changes: -EZET10TA47 PO; -OSEL30CA PO; +SIMV20TA2 PO; -SIMV40TA2 PO
[2016-12-28] MEDS ORDERED: NUTR-706 PO (10:50)
[2016-12-28 10:58] VITALS: Ht 175.3 cm; Wt 71.5 kg
--- NOTE | 2016-12-28 11:32 | DIAGNOSTIC IMAGING REPORT ---
HEAD CT NONCONTRAST CT DOSE: 614.27 mGy.cm HISTORY: fall TECHNIQUE: Multiaxial CT images of the head were performed without the use of intravenous contrast. Automated exposure control was utilized for this study. Comparison: Head CT 11/23/2016. Findings: Single partially opacified left ethmoid air cell. No fluid levels within the paranasal sinuses. The mastoid air cells are clear. Motion artifact. The calvarium and skull base are intact. There is no mass, hematoma, midline shift, acute infarct. White matter hypodensity is nonspecific but suggestive of microvascular ischemic change. The ventricles and sulci demonstrate moderate age-related involutional changes. Impression: No acute intracranial abnormality. Atrophy and microvascular ischemic changes. Electronically signed by: Jeferson Garcia M.D. 12/28/2016 11:30 AM Dictated Date/Time: 12/28/2016 11:26 AM
--- NOTE | 2016-12-28 11:56 | DIAGNOSTIC IMAGING REPORT ---
CHEST ONE VIEW PORTABLE HISTORY: fall COMPARISON: Chest 11/23/2016. FINDINGS: The heart remains enlarged. Low lung volumes. The lungs are clear. No pleural effusions. No pneumothorax. IMPRESSION: Stable cardiomegaly. No acute process within the chest. Electronically signed by: Jeferson Garcia M.D. 12/28/2016 11:54 AM Dictated Date/Time: 12/28/2016 11:53 AM
--- NOTE | 2016-12-28 11:56 | DIAGNOSTIC IMAGING REPORT ---
PELVIS ONE VIEW HISTORY: fall COMPARISON: None. FINDINGS: There is no fracture or dislocation. Soft tissues are unremarkable. No radiopaque foreign bodies. IMPRESSION: No fractures. Electronically signed by: Jeferson Garcia M.D. 12/28/2016 11:55 AM Dictated Date/Time: 12/28/2016 11:54 AM
[2016-12-28 14:00] VITALS: BP 165/101; PULSE 75; TEMP 36.5; O2SAT 95
--- NOTE | 2016-12-28 14:18 | EMERGENCY ROOM VISIT NOTE ---
History Report prepared by Jamieibheena: Tony Tran Under the Supervision of: Dr. Bc Yanes D.O. First contact with patient: 10:48 Stated Complaint: FALL History of Present Illness The patient is an 81 year old male who presents to the Emergency Room with complaints of an acute fall that occurred just prior to arrival. The patient was found on the floor at [facility], where he is staying in the Dementia Unit. Staff there heard a large 'thud' prior to finding him on the ground. There was a softball sized hole in the wall above the patient. He denies any pain including headache. Per nursing, the patient takes a baby aspirin every other day. History is limited secondary to dementia. Per the correction the patient is at his baseline. Source of History: patient, nursing staff History Limited By: dementia Onset: just prior to arrival Position: other (global) Quality: other (fall) Timing: other (acute) Associated Symptoms: No headache Review of Systems ROS is limited secondary to dementia. Past Medical & Surgical Medical Problems: (1) AAA (abdominal aortic aneurysm) (2) Alzheimer's dementia (3) Atrial fibrillation (4) CAD (coronary artery disease) (5) Dyslipidemia (6) GI bleed (7) HTN (hypertension) (8) Hypertensive urgency (9) Kidney stone (10) Lightheadedness (11) Myocardial infarction (12) Syncope Surgical Problems: (1) Stented coronary artery Family History Unobtainable secondary to dementia Social History Smoking Status: Unknown if Ever Smoked Alcohol Use: none Drug Use: none Marital Status: Housing Status: lives with family Occupation Status: retired Current/Historical Medications Scheduled Aspirin (Aspirin Ec), 81 MG PO Q2D Enteral Nutrition Formula (Ensure), 1 CAN PO BID Lorazepam (Ativan), 0.5 MG PO DAILY Multivitamins/Minerals (Cerovite Advanced Formula), 1 TAB PO DAILY Omeprazole (Prilosec), 20 MG PO DAILY Quetiapine Fumarate (Seroquel), 50 MG PO BID Simvastatin (Zocor), 20 MG PO DAILY Venlafaxine Hcl (Effexor), 75 MG PO DAILY Venlafaxine Hcl (Venlafaxine Extended Rel), 37.5 MG PO DAILY Allergies Coded Allergies: No Known Allergies (Unverified , 12/28/16) Physical Exam Vital Signs Date Time Temp Pulse Resp B/P Pulse Ox O2 Delivery O2 Flow Rate FiO2 12/28/16 14:00 36.5 75 18 165/101 95 12/28/16 13:59 75 18 165/101 95 Room Air 12/28/16 12:31 71 18 95 Room Air 12/28/16 12:00 125 18 177/118 95 12/28/16 11:55 110 23 94 12/28/16 11:50 94 12 95 12/28/16 11:45 97 18 91 12/28/16 11:40 94 15 93 12/28/16 11:35 90 10 12/28/16 11:30 88 6 12/28/16 11:25 88 15 177/118 12/28/16 11:05 122/ 12/28/16 11:03 104 15 100 12/28/16 10:58 95 12 100 12/28/16 10:58 36.5 87 16 176/123 100 Room Air 12/28/16 10:49 176/123 Physical Exam GENERAL: Sitting up in bed, alert, follows commands. HEAD: normal cephalic, atraumatic EYE EXAM: normal conjunctiva, PERRL and EOM's intact OROPHARYNX: no exudate, no erythema, lips, buccal mucosa, and tongue normal and mucous membranes are moist EARS: TMs clear b/l NECK: supple, no nuchal rigidity, no adenopathy, non-tender CHEST: stable to compression anteriorly and posteriorly LUNGS: clear to auscultation. Normal chest wall mechanics HEART: no murmurs, S1 normal and S2 normal ABDOMEN: abdomen soft, non-tender, normo-active bowel sounds, no masses, no rebound or guarding. PELVIS: stable to compression anteriorly and posteriorly BACK: Back is symmetrical on inspection and there is no deformity, no midline tenderness, no CVA tenderness. UPPER EXTREMITIES: full active and passive range of motion of all joints without tenderness to palpation LOWER EXTREMITIES: full active and passive range of motion of all joints without tenderness to palpation NEURO EXAM: GCS 14, alert, follows commands, not oriented to place or time. SKIN: Small abrasions over the right elbow and left elbow. Medical Decision & Procedures ER Provider Diagnostic Interpretation: Radiology results as stated below per my review and the radiologist's interpretation: CHEST ONE VIEW PORTABLE HISTORY: fall COMPARISON: Chest 11/23/2016. FINDINGS: The heart remains enlarged. Low lung volumes. The lungs are clear. No pleural effusions. No pneumothorax. IMPRESSION: Stable cardiomegaly. No acute process within the chest. Electronically signed by: Jeferson Garcia M.D. 12/28/2016 11:54 AM Dictated Date/Time: 12/28/2016 11:53 AM PELVIS ONE VIEW HISTORY: fall COMPARISON: None. FINDINGS: There is no fracture or dislocation. Soft tissues are unremarkable. No radiopaque foreign bodies. IMPRESSION: No fractures. Electronically signed by: Jeferson Garcia M.D. 12/28/2016 11:55 AM Dictated Date/Time: 12/28/2016 11:[address] NON[address]AST CT DOSE: 614.27 mGy.cm HISTORY: fall TECHNIQUE: Multiaxial CT images of the head were performed without the use of intravenous contrast. Automated exposure control was utilized for this study. Comparison: Head CT 11/23/2016. Findings: Single partially opacified left ethmoid air cell. No fluid levels within the paranasal sinuses. The mastoid air cells are clear. Motion artifact. The calvarium and skull base are intact. There is no mass, hematoma, midline shift, acute infarct. White matter hypodensity is nonspecific but suggestive of microvascular ischemic change. The ventricles and sulci demonstrate moderate age-related involutional changes. Impression: No acute intracranial abnormality. Atrophy and microvascular ischemic changes. Electronically signed by: Jeferson Garcia M.D. 12/28/2016 11:30 AM Dictated Date/Time: 12/28/2016 11:26 AM ED Course ED COURSE: Vital signs were reviewed and showed hypertension. The patients medical record was reviewed The above diagnostic studies were performed and reviewed. ED treatments and interventions as stated above. 1053: The patient was evaluated in room C3. A complete history and physical examination was performed. 1224: Reassessed the patient. He is sitting in the room watching TV. 1255: Spoke with Rose from [facility]. She confirms the patient's story and states that he is at baseline. He will go back. 1300: Upon reevaluation, the patient is doing well.I discussed my findings with the patient and he understands and agrees with the treatment plan. Based on the patients age, coexisting illnesses, exam and lab findings the decision to treat as an outpatient was made. The patient remained stable while under my care. The patient appeared well at the time of discharge. Medical Decision Differential diagnoses include major intracranial, cervical, spinal, thoracic, abdominal, pelvic and neurologic injury. Fracture, contusion, sprain, strain, laceration, abrasions included as well. Patient is an 81-year-old male who presents the ER following a mechanical fall at the correction. He is from the dementia unit and was at his baseline prior to being transported the EMS. He has absolutely no complaints. There is no signs of trauma. Vitals are unremarkable. CT of the head was performed along with a chest x-ray and pelvic secondary there is no fractures. Vitals at some point was reported as a tachycardia and I had them immediately repeated and it was normal with a heart rate in the 70s. Discussed with Rose who is the nurse at [facility] and she confirms that he is at his baseline and he was discharged back to the correction following obtaining the staff. Discussed with NH concerning signs and symptoms to watch out for. NH was instructed to follow up with their PCP and discussed with the patient their option to return to the ED at anytime for persistent or worsening symptoms. The appropriate anticipatory guidance and out-patient management, including indications for return to the emergency department, were explained at length to the NH and understood. Impression Primary Impression: Fall Scribe Attestation The scribe's documentation has been prepared under my direction and personally reviewed by me in its entirety. I confirm that the note above accurately reflects all work, treatment, procedures, and medical decision making performed by me. Departure Information Dispostion Home / Self-Care Referrals [facility] (PCP) Forms HOME CARE DOCUMENTATION FORM, IMPORTANT VISIT INFORMATION Patient Instructions Falls Preventing, Falls Risks Prevent, My [facility] Additional Instructions Please follow up with your primary care doctor with in the next 24 hours. Any worsening of your symptoms, please return to the ED immediately. This includes confusion, recurrent falls, any new pain, or any other concerning signs or symptoms from your standpoint. Please give Tylenol as needed for pain. Problem Qualifiers Primary Impression: Fall Encounter type: initial encounter Qualified Codes: W19.XXXA - Unspecified fall, initial encounter
== END 2016-12-28 14:02 | disposition home or self-care (01) ==
LOC: EDBD 10:43 → C.EDC 10:44
DX: Z04.3 Encounter for examination and observation following other accident (principal); W19.XXXA Unspecified fall, initial encounter; R00.0 Tachycardia, unspecified; I48.91 Unspecified atrial fibrillation; G30.9 Alzheimer's disease, unspecified; F02.80 Dementia in other diseases classified elsewhere, unspecified severity, without behavioral disturbance, psychotic disturbance, mood disturbance, and anxiety; I25.10 Atherosclerotic heart disease of native coronary artery without angina pectoris; I10 Essential (primary) hypertension; E78.5 Hyperlipidemia, unspecified; I25.2 Old myocardial infarction; Z87.442 Personal history of urinary calculi; Z98.61 Coronary angioplasty status; Z79.82 Long term (current) use of aspirin; Z79.899 Other long term (current) drug therapy

== ENCOUNTER → 2017-02-11 | Outpatient (CLI) | payer OTHER, MEDICARE ==
[~2017-02-11] MED LIST changes: -ISOS30TA3 PO; -LSN10 PO; +NUTR-706 PO; -VTMD PO
== END | disposition home or self-care (01) ==
LOC: C.LABOUTLO 17:16
PROVIDERS: ATTEND Internal Medicine
DX: N39.0 Urinary tract infection, site not specified (principal)